=== PATIENT | female | born 1995 | race Caucasian/White ===

== ENCOUNTER → 2018-08-28 | Outpatient (CLI) | payer OTHER, MEDICAID ==
[2016-06-05 15:45] VITALS: BMI 36.8
[~2018-08-28] MED LIST: ACE3 PO; ACE325 PO; AMOX500T10 PO; ASP325 PO; ASPI-1441; ASPI-1471 PO; CEP500 PO; DOC100 PO; IBU600 PO; IBUP800T37 PO; NAP250 PO; NIT100 PO; NORE0.3529 PO; OND4 PO; PNV#1COM14 PO; PREN-67
--- NOTE | 2018-08-28 13:14 | RADIOLOGY IMAGING REPORT ---
FACILITY: [facility] PATIENT NAME: Mary Poon : 1995 MR: [id number] V: [id number] EXAM DATE: [id number] ORDERING PHYSICIAN: CLARE VINES TECHNOLOGIST: Location: [facility] [place] Patient: Mary Poon : 1995 Visit/Account:[id number] Date of Sevice: 08/28/2018 GALLBLADDER HISTORY: Right-sided pain. 34 week COMPARISON: None. FINDINGS: Gallbladder: Unremarkable; no stones or sludge. Liver: Mild hepatomegaly Common duct: Normal, 2.6 mm diameter. Pancreas: Obscured by bowel and not able to be visualized. Right kidney: Right kidney appears unremarkable measuring 11.2 cm in length. There is no evidence of right hydronephrosis Upper abdominal aorta and IVC: Obscured Ascites: None visualized. IMPRESSION: No demonstration of cholelithiasis or right-sided hydronephrosis Mild hepatomegaly Report Dictated By: Silvia Heller MD at 08/28/2018 1:09 PM Report E-Signed By: Silvia Heller MD at 08/28/2018 1:10 PM WSN:[email or web address]
== END ==
LOC: US 03:15
PROVIDERS: ATTEND Obstetrics & Gynecology
DX: R16.0 Hepatomegaly, not elsewhere classified (principal); R10.11 Right upper quadrant pain; Z3A.34 34 weeks gestation of pregnancy
CPT/HCPCS: 76705

== ENCOUNTER 2018-09-22 05:40 | Inpatient (IN) | payer OTHER, MEDICAID ==
[~2018-09-22] VITALS: Ht 170.2 cm; Wt 104.3 kg
[2018-09-22] MEDS ORDERED: FAMOTIDINE(*) 20MG/50ML PREMIX 50 ML IVPB PRN (05:41)
[2018-09-22] MEDS ORDERED: OXYTOCIN 30 UNIT/D5LR 500 ML 500 ML IV PRN ×3 (05:41→21:15)
[2018-09-22] MEDS ORDERED: fentaNYL CITR 100 MCG/2 ML AMP IVP PRN (05:45)
[2018-09-22] MEDS ORDERED: METOCLOPRAMIDE 10 MG/2 ML SDV IVP PRN (05:45)
[2018-09-22] MEDS ORDERED: LIDOCAINE/SOD BICARB 8.4% SYR SC PRN (05:45)
[2018-09-22] MEDS ORDERED: TERBUTALINE SULF 1 MG/ML VIAL SUBQ PRN (05:45)
[2018-09-22] MEDS ORDERED: cefOXitin/DEX(*) 2GM/50ML PREM 50 ML IVPB PRN (05:45)
[2018-09-22] MEDS ORDERED: LIDOCAINE 1% LOCAL 300 MG/30ML INJ PRN (05:45)
[2018-09-22] MEDS: LR(*) 1000 ML BAG 1,000 ML IV PRN ×2 (06:20→18:42)
[2018-09-22 06:23] LABS: PLATELET COUNT, AUTOMATED 199 K/uL (150-450)
[2018-09-22 06:30] VITALS: BP 136/71; Ht 170.2 cm; Wt 104.3 kg
--- NOTE | 2018-09-22 13:06 | History & Physical ---
History of Present Illness Age of Patient: 23 : 3 Para or TPAL: 2 Estimated Gestational Age: 38.5 Chief Complaint gestational hypertension History of Present Illness Presents for IOL due to gestational hypertension with favorable cervix. Was 3 cm in the office. BPs have intermittently been in mild range and no preeclampsia symptoms. Labs normal without proteinuria. Desires PPTL. Past Medical, Surgical, Family and Obstetric Histories reviewed. Please see ACOG chart. History Allergies: Coded Allergies: No Known Drug Allergies (Verified , 03/10/17) Social History: Single, with FOB. No T/E/D Med Rec Home Meds Reported Medications Norethindrone (DON) 0.35 Mg Tablet, 0.35 MG PO QDAY 03/10/17 Review of Systems All Systems Reviewed/Normal: Yes, Except as Noted Exam General Exam Vital Signs Vital Signs Date Time Temp Pulse Resp B/P (MAP) Pulse Ox O2 Delivery O2 Flow Rate FiO2 09/22/18 06:30 98.7 72 18 136/71 (92) 96 Room Air General Apperance: Alert/Awake/No Acute Distress Neuro: No Gross deficits Eyes: Normal Extraocular Movement & Vison Cardiovascular: Regular Rate and Rhythm Respiratory: No Respiratory Distress Abdomen: Soft, Non-Tender, Non-Distended Musculoskeletal: No Weakness/Pain Extremities: No Cyanosis,Clubbing or Edema Integumentary: Skin Intact without Lesions or Rash Psychological: Alert & Oriented X3 Vaginal Discharge/Fluid?: Clear Fluid (AROM) Cervical Dialation: 3 Cervical Effacement (%): 80 Cervical Consistency: Moderate Cervical Position: Mid Station: -1 Presentation: Vertex Fetus Heart Tone Variabilty: Moderate FHT Accelerations: 15X15 FHT Decelerations: None FHT Category: I Medical Decision Making Data Points Result Diagram: 09/22/18 0610 09/22/18 0610 VTE Prophylasis: Adult Deep Vein Thrombosis/Pulmonary: No Pharmacological Contraindicati: Pt at Low Risk for VTE Mechanical Contraindications: Pt at Low Risk for VTE 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 Expecting . Watching for worsening symptoms of preeclampsia. Problem Qualifiers (1) Gestational hypertension: Trimester: third trimester Qualified Codes: O13.3 - Gestational [- induced] hypertension without significant proteinuria, third trimester CLARE VINES MD Sep 22, 2018 13:06
[2018-09-22] MEDS ORDERED: BUPIVACAINE 0.25% MPF INJ EPI PRN (19:45)
[2018-09-22] MEDS ORDERED: LIDO/EPI 2% MPF 1:200,000 20ML EPI PRN (19:45)
[2018-09-22] MEDS ORDERED: FENTANYL/ROPIVACAINE 100 ML BAG EPI PRN (19:45)
[2018-09-22] MEDS ORDERED: BUPIVACAINE 0.5% INJ 30ML VIAL EPI PRN (19:45)
[2018-09-22] MEDS ORDERED: fentaNYL CITR 100 MCG/2 ML AMP IT PRN (19:45)
[2018-09-22] MEDS ORDERED: LIDOCAINE/PF 2% 200MG/10ML AMP 200 MG/10 ML AMPUL EPI PRN (19:45)
[2018-09-22] MEDS ORDERED: EPIDURAL KEYS XX PRN (19:45)
--- NOTE | 2018-09-22 21:19 | Anesthesia OB Pre-Anes Eval ---
History of Present Illness Anesthesia Start Date: Sep 22, 2018 Anesthesia Start Time: 19:55 OB Anesthesia Diagnosis: induction - medical (Gest hypertension) Current Complication: gestational hypertention Complications: None known EDC: Oct 01, 2018 : 3 Para: 2 Vital Signs: Vital Signs Date Time Temp Pulse Resp B/P (MAP) Pulse Ox O2 Delivery O2 Flow Rate FiO2 09/22/18 06:30 98.7 72 18 136/71 (92) 96 Room Air Pain Ratin Heart Tones: WNL Result Diagram: 09/22/18 0610 09/22/18 0610 Height (Inches): 67.00 Weight (Pounds): 230 BMI Calculated: 33.67 Past Medical History Medical History: obesity Surgical History: other (knee and ankle) Previous Anesthesia: general, epidural (x2) Attended Childbirth Classes?: No Hx Anesthesia Reactions: No Hx Family Anesthesia Reaction: No Current Medications: pitocin Home Meds Reported Medications Norethindrone (DON) 0.35 Mg Tablet, 0.35 MG PO QDAY 03/10/17 Allergies: Coded Allergies: No Known Drug Allergies (Verified , 03/10/17) Anesthesia OB ROS Neurological: No migraines/headaches, No seizures, No neuropathy ENT: Denies Tooth caps, Denies Loose teeth, Denies Chipped teeth, Denies Dentures, Denies Bridges, Denies Retainers, Denies Veneers, Denies Implants, Denies Tongue ring Pulmonary: No asthma, No smoker (pks/day/yrs), No other Airway Class: lll Cardiovascular ROS: No edema, No arrhythmia GI ROS: clear liquids Last Solids Date: Sep 21, 2018 Last Solids Time: 19:00 ROS: No Herpes, No STD(s), No Liver Disease, No Renal Disease Endocrine ROS: No diabetes, No gestational diabetes, No thyroid disorder; other Musculoskeletal ROS: No low back pain, No low back injury, No scoliosis ASA Classification: 3 Assessment and Plan Anesthesia Plan: CSE Assessment Past Medical, Surgical, Family and Obstetric Histories reviewed. Please see ACOG chart.Epidural anesthesia risks, complications and benefits explained to patient's satisfaction for labor and vaginal delivery and/or section. General anesthesia risks and benefits explained to patient's satisfaction. Reviewed pt's previous medical records for epidural procedure and effectiveness. No problems noted. Questions invited, none asked. SHA VAZQUEZ CORE ANALYST Sep 22, 2018 21:19
--- NOTE | 2018-09-22 21:23 | Procedure Note ---
Anesthetic Placement Note Anesthesia Plan: CSE Permit for Anesthesia Signed: Yes Anesthesia Technique: Patient Sitting Anesthesia Prep: Chlorhexidine Interspace: L 3-4 Local Anesthetic: 1% Lidocaine, 25 Gauge Needle Amount Local - cc's: 3 Anesthesia Needle: 17g Touhy/Schliff Anesthesia Attempts: 1 Depth of SIRI (cm): 6 Epidural Needle Placement: No CSF, No Blood, No Parasthesia Intrathecal Needle: 27 Gauge Pencan Cerebral Spinal Fluid: Yes, Clear Catheter Insertion (cm): 8 Catheter Type: Simon - Spring Wound Epidural Dressing: Tegaderm, Tape, Adhesive Rufus Anesthesia Tray: Lot Number ([id number]), Expiration Date (2019-08-02), Ref erence Number ([id number]) Anesthesia Medications: Intrathecal Dose: mcg Fentanyl (15), mg Marcaine MPF (1.75), Time Epidural Test Dose: 1.5 Lido/Epi (1:200,000), Dose - mL (3), Time (2041), Negative Epidural Loading Dose: 0.2% Ropivicaine, With Fentanyl 2mcg/ml, Dose - ml (5), Time (2100) Epidural Infusion: 0.2% Ropivicaine, With Fentanyl 2mcg/ml, Start Time: (2101) Epidural Pump Setting: Bolus Dose - mL (5), Lockout - Minutes (20), Maintenance Rate - mL/hr (6), Maximum per Hour - mL (21) Complications: None Comment: Pt.tolerated procedure very well. She became comfortable within 5-10 minutes. Mild itching noted. SHA VAZQUEZ CRNA Sep 22, 2018 21:23
[2018-09-23] VITALS (11 sets, daily range): BP systolic 119–142; BP diastolic 60–87
[2018-09-23] MEDS ORDERED: CARBOPROST TROMETHAM 250MCG/ML IM ONLY ONE (00:24)
--- NOTE | 2018-09-23 01:34 | OB Delivery Note ---
Delivery Note Vaginal Delivery Type: Spont. Vaginal Delivery Delivery Date: Sep 23, 2018 Delivery Time: 01:17 Estimated Gestational Age(wks): 38.5 Delivery Anesthesia: Epidural Sex: Male Apgars: 1 Minute (8), 5 Minute (9) Estimated Blood Loss: 300 Delivery Complications: Other (none) Notes: Pitocin induction due to gestational hypertension. Pressures have been stable through labor. Pitocin induction from 3 cm at admission to 4.5 cm by 1530. Slow active phase requiring several periods of discontinuing the Pitocin and restarting after a period of flushing the receptors. 5 cm by 1910, 8 cm by 2100 and completely dilated at midnight. Allowed to labor town to +2 station and then pushing effectively brought baby to delivery in ZURI position over intact perineum. Shoulders delivered spontaneously, placenta delivered spontaneously and intact. No complications. Boiling Off Winder in Attendence: No Copies to: CLARE VINES MD ; CLARE VINES MD Sep 23, 2018 01:34
[2018-09-23] MEDS ORDERED: LANOLIN OINT 7 GM TUBE TP PRN (01:35)
[2018-09-23] MEDS ORDERED: BENZOCAINE 20% 60 ML BTL TP PRN (01:35)
[2018-09-23] MEDS ORDERED: MAGNESIUM HYDROXIDE* 30ML UDCP PO PRN (01:35)
[2018-09-23] MEDS ORDERED: DIPHTH/TETANUS/ACEL. PERTUSSIS IM ONE (01:35)
[2018-09-23] MEDS ORDERED: GLYCERIN/WITCH HAZEL LEAF 1 PK TOP PRN (01:35)
[2018-09-23] MEDS ORDERED: INFLUENZA VIRUS VAC 0.5ML SYR IM ONLY ONE (01:35)
[2018-09-23] MEDS ORDERED: MEASLES,MUMP,RUBELLA VAC 0.5ML SC ONE (01:35)
[2018-09-23] MEDS ORDERED: ACETAMINOPHEN 325 MG TAB PO PRN (01:35)
[2018-09-23] MEDS ORDERED: HYDROCORTISONE 2.5% CR 30GM TB PR PRN (01:35)
--- NOTE | 2018-09-23 01:38 | Anesthesia Progress Note ---
Progress/Maintenance Anesthesia Note Date: Sep 23, 2018 Anesthesia Note Time: 01:30 Pain Intensity: 0 Pump: Off Sensory Level: t-12 Motor Level: Bending Knees-Bilateral Dilatation: 10 Position: Semi-Fowlers Drug Bolus: 0.5% Marcaine (5 ML), Other (fENTENYL 85 MCGS) Assessment and Plan Assessment Additional medication given as pt. started to push. Sudden nausea and vomiting. Head delivered, then slowly the entire without mom pushing. Epidural catheter to remain in for possible use tomorrow with PPBLT. Patient instructed the first ambulation is to be with help of nursing staff. Instructed to preform deep knee bends at bedside before walking. Anesthesia Stop Day: Sep 23, 2018 Anesthesia Stop Time: 01:30 SHA VAZQUEZ CRNA Sep 23, 2018 01:38
[2018-09-23] MEDS ORDERED: MISOPROSTOL 200 MCG TAB PR STA (02:35)
[2018-09-23] MEDS ORDERED: OXYTOCIN 30 UNIT/D5LR 500 ML 500 ML IV ONE (02:35)
[2018-09-23] MEDS ORDERED: OXYTOCIN 30 UNIT/D5LR 500 ML 500 ML ONE (02:40)
[2018-09-23] MEDS ORDERED: MISOPROSTOL 200 MCG TAB ONE (02:40)
[2018-09-23] MEDS ORDERED: MISOPROSTOL 200 MCG TAB PR ONE (04:50)
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
[2018-09-23] MEDS: IBUPROFEN 800 MG TAB PO SCH ×3 (09:00→19:35)
[2018-09-23] MEDS: DOCUSATE CALCIUM 240 MG CAP PO SCH ×3 (09:00→20:46)
[2018-09-23 09:07] LABS: PLATELET COUNT, AUTOMATED 206 K/uL (150-450)
--- NOTE | 2018-09-23 11:37 | Anesthesia Post Eval Note ---
Anesthesia Post Eval Note Vital Signs Date Time Temp Pulse Resp B/P (MAP) Pulse Ox O2 Delivery O2 Flow Rate FiO2 09/23/18 07:32 98.1 89 16 124/81 (95) Room Air 09/22/18 06:30 96 Pt able to participate in Eval: Yes Cardiovascular Status: Satisfactory Respiratory Status: Satisfactory Pain Managment: Satisfactory PO Nausea/Vomiting: Satisfactory Temperature Management: Satisfactory Mental Status: Satisfactory, Alert, Oriented X3 Post-Op Hydration Status: Satisfactory, Tolerating PO Well, Voiding w/o Difficulty Anesthesia Type: CSE Anesthesia Tolerance: Epidural has remained in place. Pt. has had some excessive bleeding thru the night. No medication has infused since delivery and plans are to remove within 1-2 hrs. Tolerated procedure well without apparent anesthetic complications. LP site clear, no redness or edema. Denies headache or any residual paresthesia. Vital Signs Stable, Patient comfortable and condition stable. SHA VAZQUEZ CRNA Sep 23, 2018 11:37
[2018-09-23] MEDS ORDERED: NORMOSOL R SOLN(*) 1000 ML BAG 1,000 ML IV PRN (13:00)
[2018-09-23] MEDS ORDERED: METOCLOPRAMIDE 10 MG/2 ML SDV IVP ONE (13:45)
[2018-09-23] MEDS ORDERED: FAMOTIDINE 20 MG TAB PO ONE (13:45)
[2018-09-23] MEDS ORDERED: ROPIVACAINE 0.2% 20 ML VIAL ONE (15:06)
--- NOTE | 2018-09-23 16:09 | Post Operative Note ---
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
[2018-09-23] MEDS ORDERED: LOR5/325 PO (16:23)
[2018-09-23] MEDS ORDERED: IBUP800T37 PO (16:23)
--- NOTE | 2018-09-23 16:47 | OPERATIVE REPORT 1 ---
EVENT DATE: September 23, 2018 SURGEON: Aleksander Zimmerman MD ANESTHESIOLOGIST: ANESTHESIA: Spinal PREOPERATIVE DIAGNOSIS 1. Status post normal spontaneous vaginal delivery. 2. Desired sterilization. POSTOPERATIVE DIAGNOSIS 1. Status post normal spontaneous vaginal delivery. 2. Desired sterilization. PROCEDURE PERFORMED tubal ligation via modified Teresa method. ESTIMATED BLOOD LOSS Minimal. FLUIDS 500 cc IV Crystalloid. PROCEDURE IN DETAIL The patient was brought to the operating room with a working IV and spinal anesthetic was administered. She was placed in the dorsal supine position, prepped and draped in the usual sterile fashion. The inferior umbilicus was infiltrated with 0.2% Naropin. A linear transverse incision was made below the umbilicus approximately 4 cm in length and we dissected down through the abdominal wall fascia and peritoneum into the abdomen. Omentum was lightly packed away with a mini-laparotomy sponge and retractors were used to manipulate the abdominal wall, while the left fallopian tube was brought into view. It was grasped with a Ed clamp and followed out to the fimbriated end confirming the fallopian tube. It was therefore grasped in the isthmic portion and elevated up into the incision. A plain gut tie was used to doubly ligate a knuckle of tube while a 2 cm segment of tube was excised. The site was hemostatic upon completion and allowed to fall back into the abdomen. The same procedure was followed on the contralateral tube and in a likewise fashion following it out to the fimbriated end, grasping the isthmic portion, elevating and creating a knuckle of tube with doubly ligated 0 plain gut. A 2 cm segment of tube was excised and sent to pathology. No visible complications. All instruments were removed from the abdomen. The fascial incision was repaired with an 0 Vicryl in a running nonlocking stitch. The subcuticular space was closed with a 3-0 Vicryl and the skin was repaired with a 4-0 Monocryl simple subdermal. The incision was covered with Dermabond skin adhesive. She tolerated the procedure well. Sponge, lap, needle, and instrument counts were all correct times 3. MTDD
[2018-09-23] MEDS: ASPIRIN 81 MG CHEW PO SCH (18:10)
[2018-09-23] MEDS: APAP/HYDROCODONE 325/5 TAB PO PRN (18:11)
[2018-09-24] MEDS: APAP/HYDROCODONE 325/5 TAB PO PRN ×2 (01:59→07:11)
[2018-09-24 03:25] VITALS: BP 110/59
[2018-09-24] MEDS: IBUPROFEN 800 MG TAB PO SCH ×2 (03:35→11:45)
[2018-09-24 07:10] VITALS: BP 143/75
[2018-09-24] MEDS: ASPIRIN 81 MG CHEW PO SCH (09:30)
[2018-09-24] MEDS: DOCUSATE CALCIUM 240 MG CAP PO SCH (09:30)
--- NOTE | 2018-09-24 10:39 | OB/GYN Progress Note ---
OB Subjective Progress Notes Subjective Doing well. Pain well controlled and ambulating well. No problems. BP stable. GI: NEG Nausea : Voiding Well Pain: Mild OB Objective Physical Exam Vital Signs Date Time Temp Pulse Resp B/P (MAP) Pulse Ox O2 Delivery O2 Flow Rate FiO2 09/24/18 03:25 98.6 66 18 110/59 (76) 96 Room Air Intake and Output 09/24/18 06:59 Intake Total 1440 ml Output Total 2700 ml Balance -1260 ml Intake Oral 240 ml IV Total 600 ml Other 600 ml Output Urine Total 2700 ml # Voids 2 General Appearance: Alert/Awake/No Acute Distress Neurological: No Gross deficits Eyes: Normal Extraocular Movement & Vison Cardiovascular: Normal Rhythm & Peripheral Pulses, Regular Rate and Rhythm Respiratory: No Respiratory Distress, Clear to Auscultation Abdomen: Soft, Non-Tender, Non-Distended, Fundus Firm, Non-Tender Extremities: No Cyanosis,Clubbing or Edema Integumentary: Skin Intact without Lesions or Rash Psychological: Alert & Oriented X3, Appropriate Mood & Affect Result Diagram: 09/23/18 1809 09/22/18 0610 Assessment and Plan 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
--- NOTE | 2018-09-24 10:40 | OB/GYN Discharge Summary ---
Discharge Summary Reason for Hosp/Final Diag: (1) Gestational hypertension (2) Uterine atony (3) care and examination immediately after delivery (4) Admission for sterilization Lates Vital Signs Vital Signs Date Time Temp Pulse Resp B/P (MAP) Pulse Ox O2 Delivery O2 Flow Rate FiO2 09/23/18 12:18 98.4 16 120/74 (89) Room Air 09/23/18 07:32 89 09/22/18 06:30 96 Weight (Pounds): 230 Result Diagram: 09/23/18 0902 09/22/18 0610 Condition: Improved Discharge: Home, Self [facility] Meds Active Scripts Hydrocodone Bit/Acetaminophen (HYDROCODON-ACETAMINOPHEN 5-325) 1 Each Tablet, 1- 2 EACH PO Q4H PRN for PAIN, #20 TAB 0 Refills Prov:CLARE ZIMMERMAN MD 09/23/18 Reported Medications Norethindrone (DON) 0.35 Mg Tablet, 0.35 MG PO QDAY 03/10/17 Follow up Referrals: FINANCE ANALYST - In Two Weeks @ [facility] with CLARE ZIMMERMAN MD Follow up with: Dr. Zimmerman [phone] Follow up in: 6 wks PP or PO Discharge Diet: As Tolerates Discharge Activity: As Tolerates, No Heavy Lifting x 6 wks, No Heavy Lifting > 10lb, Pelvic Rest Copies to: CLARE ZIMMERMAN MD ; Problem Qualifiers (1) Gestational hypertension: Trimester: third trimester Qualified Codes: O13.3 - Gestational [- induced] hypertension without significant proteinuria, third trimester CLARE ZIMMERMAN MD Sep 23, 2018 16:27
[2018-09-24] MEDS ORDERED: ASPIRIN 81 MG CHEW PO SCH (18:00)
== END 2018-09-24 12:25 | disposition home or self-care (01) | DRG 798 ==
LOC: OB 05:40
PROVIDERS: ADMIT Obstetrics & Gynecology; ATTEND Obstetrics & Gynecology
PROC: 0UB70ZZ Excision of Bilateral Fallopian Tubes, Open Approach (ICD-10-PCS; 2018-09-23)
PROC: 3E033VJ Introduction of Other Hormone into Peripheral Vein, Percutaneous Approach (ICD-10-PCS; 2018-09-23)
PROC: 10E0XZZ Delivery of Products of Conception, External Approach (ICD-10-PCS; principal; 2018-09-23 15:22)
DX: O13.4 Gestational [pregnancy-induced] hypertension without significant proteinuria, complicating childbirth (principal); Z37.0 Single live birth; O72.1 Other immediate postpartum hemorrhage; O99.215 Obesity complicating the puerperium; E66.9 Obesity, unspecified; Z30.2 Encounter for sterilization; Z68.36 Body mass index [BMI] 36.0-36.9, adult; Z3A.38 38 weeks gestation of pregnancy
CPT/HCPCS: 36415; 82040; 82247; 82310; 82374; 82435; 82565; 82947; 84075; 84132; 84155; 84295; 84450; 84460; 84520; 85025; 85027; 86703; 86850; 86900; 86901; 88302; J2590; J2765; J2795; J7120

== ENCOUNTER → 2018-10-16 | Outpatient (CLI) | payer OTHER, MEDICAID ==
[2018-09-22 06:30] VITALS: BMI 33.7
[~2018-10-16] MED LIST changes: +LOR5/325 PO
--- NOTE | 2018-10-16 15:12 | RADIOLOGY IMAGING REPORT ---
FACILITY: [facility] PATIENT NAME: Mary Poon : 1995 MR: [id number] V: [id number] EXAM DATE: ORDERING PHYSICIAN: CLARE VINES TECHNOLOGIST: Location: [facility] Patient: Mary Poon : 1995 Visit/Account:[id number] Date of Sevice: 10/16/2018 VENOUS DOPP UPPER LEFT EXTREMI HISTORY: Left arm pain Findings: No DVT noted in the deep system. Basilic and brachial veins, subclavian and internal jugular vein we ll-maintained. There is clot seen within the cephalic vein of the left forearm at the point of the previous IV site. IMPRESSION: 1. Superficial clot within the cephalic vein of the left forearm at site of previous IV. Report Dictated By: Olvin Chu MD at 10/16/2018 3:01 PM Report E-Signed By: Olvin Chu MD at 10/16/2018 3:07 PM WSN:[email or web address]
== END ==
LOC: US 07:26
PROVIDERS: ATTEND Obstetrics & Gynecology
DX: I80.9 Phlebitis and thrombophlebitis of unspecified site (principal); I21.9 Acute myocardial infarction, unspecified

== ENCOUNTER → 2018-12-04 | Outpatient (CLI) | payer OTHER, MEDICAID ==
[2018-09-22 06:30] VITALS: BMI 33.7
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
== END ==
LOC: US 06:59
PROVIDERS: ATTEND Obstetrics & Gynecology
DX: D68.2 Hereditary deficiency of other clotting factors (principal); R22.42 Localized swelling, mass and lump, left lower limb